=== PATIENT | female | born 2000 | race Caucasian/White ===

== ENCOUNTER 2021-07-15 11:23 | Emergency (ER) | payer BC, SELFPAY ==
[2021-07-15 11:33] VITALS: BP 130/80; PULSE 108; RESP 16; TEMP 36.8; O2SAT 99
--- NOTE | 2021-07-15 11:33 | ED.FEMALEGU ---
HPI - Female Genitourinary General Chief complaint: Urogenital-Female Stated complaint: PAINFUL URINATION Time Seen by Provider: 07/15/21 11:27 Source: patient and RN notes reviewed History of Present Illness HPI Narrative: Patient is a 21-year-old female who presents the urgent care with complaints of a possible UTI. Patient states that yesterday she started having urinary frequency, urgency and burning with urination. Patient has been taking Azo since yesterday and did take 1 dose of Macrobid this morning. States that the Macrobid was a leftover medication from her roommate. Patient denies of any frequent history of UTIs but has had a UTI in the past. Denies of any fever, chills, nausea or vomiting. Denies of flank or abdominal pain. No other acute complaints. No acute distress noted. Patient aware of the plan of care. Some parts of this dictation were generated by voice recognition software and may contain typographical and/or grammatical inaccuracies. Related Data Allergies Allergy/AdvReac Type Severity Reaction Status Date / Time No Known Allergies Allergy Verified 07/15/21 11:32 Review of Systems Review of Systems: CONSTITUTIONAL: Denies fever, chills, or sweats. EYES: Denies visual changes, redness, or discharge. ENT: Denies rhinorrhea, congestion, sore throat, or otalgia. CARDIOVASCULAR: Denies chest pain, palpitations, or edema. RESPIRATORY: Denies cough or dyspnea. GASTROINTESTINAL: Denies abdominal pain, nausea, vomiting, or diarrhea. GENITOURINARY: Reports of urinary urgency, frequency and dysuria SKIN: Denies rash or itching. MUSCULOSKELETAL: Denies back pain, joint pain, or myalgia. NEUROLOGIC: Denies headache, numbness, or weakness. All other systems reviewed are negative, except as documented in HPI. It is PMFSH Comments At the time of my signature, I reviewed and agree with the nursing past medical, surgical, social, and family history. There is no relevant family history pertinent to the patient complaint. Exam Narrative: GENERAL: This is a well-nourished, well-developed patient, in no apparent distress. HEAD: normocephalic, atraumatic. EYES: PERRL. Sclera clear/white. Vision is grossly intact. EARS: External ears normal NOSE: External nose normal with no obvious nasal discharge, nares without redness, no rhinorrhea. THROAT: Mucous membranes moist NECK: Neck supple CARDIOVASCULAR: Regular rate and rhythm without murmurs, gallops, or rubs. RESPIRATORY: Clear to auscultation. Breath sounds equal bilaterally. No wheezes, rales, or rhonchi. SKIN: warm, intact with no suspicious lesions or rash, good texture and turgor. NEURO: awake, alert, and oriented to person, place and time. There were no obvious focal neurologic abnormalities. EXTREMITIES: No clubbing, cyanosis, or edema. BACK: Nontender without deformity or crepitance. No flank tenderness. Course Course Level of Care: Express Care Visit Vital Signs Vital signs: Vital Signs Temperature 98.3 F 07/15/21 11:33 Pulse Rate 108 H 07/15/21 11:33 Respiratory Rate 16 07/15/21 11:33 Blood Pressure 130/80 07/15/21 11:33 Pulse Oximetry 99 07/15/21 11:33 Temperature 98.3 F 07/15/21 11:33 Pulse Rate 108 H 07/15/21 11:33 Respiratory Rate 16 07/15/21 11:33 Blood Pressure 130/80 07/15/21 11:33 Pulse Oximetry 99 07/15/21 11:33 Reviewed MDM - Female Genitourinary MDM Narrative Medical decision making narrative: Reviewed lab results with the patient. She is aware that urine analysis does appear to be indicative of a urinary tract infection. Advised the patient to complete the oral antibiotic regimen as prescribed. Be sure to eat and drink with the medication. We will culture the urine and call if medication needs to be changed, based on culture results. Use the Pyridium as needed for bladder spasms. Do not use the Pyridium in conjunction with Azo. Increase your water intake and avoid sugary and caffeinated drinks. Allyssa
== END 2021-07-15 11:49 | disposition home or self-care (01) ==
PROVIDERS: Emergency Provider Nurse Practitioner Family
DX: N39.0 Urinary tract infection, site not specified (principal)
CPT/HCPCS: 81003; 87086; 99213; G0463